=== PATIENT | female | born 2000 | race Caucasian/White ===

== ENCOUNTER 2019-05-06 23:08 | Emergency (ER) | payer SELFPAY ==
[~2019-05-06] VITALS: Ht 163 cm; Wt 70.0 kg
[2019-05-06 23:40] VITALS: BP 111/69
[2019-05-07] MEDS ORDERED: LIDOCAINE 2% VISCOUS 15 ML UDC PO ONE
--- NOTE | 2019-05-07 00:06 | ED EENT ---
History of Present Illness General Chief Complaint: Oral/Throat Problems Stated Complaint: MOUTH PAIN Source: patient Exam Limitations: no limitations History of Present Illness Date Seen by Provider: May 07, 2019 Time Seen by Provider: 00:01 Initial Comments Patient presents ER by private conveyance with chief complaint of 3 take her source one on her tongue and 2 on her lower lip. She's had these before. She's not having any fevers chills nausea vomiting headache. Allergies and Home Medications Allergies Coded Allergies: No Known Drug Allergies (Unverified , 05/06/19) Patient Home Medication List Home Medication List Reviewed: Yes Review of Systems Review of Systems Constitutional: No chills, No diaphoresis Eyes: Denies Blindness, Denies Drainage Ears: Denies Dizziness, Denies Pain Nose: denies clots, denies congestion Mouth: see HPI; denies clots, denies loose teeth Past Mipenti-Nznari-Gkltov Hx Patient Social History Alcohol Use: Denies Use Recreational Drug Use: No Smoking Status: Never a Smoker Recent Foreign Travel: No Contact w/Someone Who Travel: No Physical Exam Vital Signs Vital Signs - First Documented 05/06/19 23:40 Temp 37.0 Pulse 73 B/P (MAP) 111/69 (83) Pulse Ox 98 O2 Delivery Room Air Height, Weight, BMI Height: '" Weight: lbs. oz. kg; BMI Method: General Appearance: WD/WN, no apparent distress Eyes: bilateral eye normal inspection, bilateral eye PERRL, bilateral eye EOMI Ears: bilateral ear auricle normal, bilateral ear canal normal, bilateral ear TM normal Nose: normal inspection; No active bleeding Mouth/Throat: No dental tenderness; other (1 shallow white plaque ulcerations on the tongue and 2 on the anterior, lower lip) Neck: full range of motion, normal inspection Cardiovascular: normal peripheral pulses, regular rate, rhythm Respiratory: no respiratory distress, no accessory muscle use Progress/Results/Core Measures Results/Orders My Orders Orders - MATTHEW MEDEL Lidocaine 2% Viscous 15 Ml (Xylocaine Vi (05/07/19 00:00) Vital Signs/I&O 05/06/19 23:40 Temp 37.0 Pulse 73 B/P (MAP) 111/69 (83) Pulse Ox 98 O2 Delivery Room Air Blood Pressure Mean: 83 POS Progress Progress Note : Time: 00:03 Progress Note Viscous lidocaine and Magic mouthwash. Departure Impression Primary Impression: Oral aphthous ulcer Disposition: 01 HOME, SELF-CARE Condition: Stable Departure-Patient Inst. Decision time for Depature: 00:03 Referrals: NO,LOCAL PHYSICIAN (PCP/Family) Primary Care Physician Patient Instructions: Mouth Sores (DC) Add. Discharge Instructions: Continue good oral hygiene with mouthwash, flossing and toothbrushing. Apply a thin amount of viscous lidocaine to some gauze over the ulcers or you may just swish and spit every 4 hours as needed to numb up the site for pain. Tylenol 1000 g every 8 hours as needed for pain. Ibuprofen 800 mg every 8 hours as needed for pain. 15 mL's Magic mouthwash swish for 30 seconds and spit out. Do this twice daily for the next week. All discharge instructions reviewed with patient and/or family. Voiced understanding. Scripts [viscous lidocaine] No Conflict Check 15 ML BC Q4H PRN for PAIN-BREAKTHROUGH, #100 GM 0 Refills Prov: MATTHEW MEDEL 05/07/19 Chlorhexidine Gluconate (Peridex) 473 Ml Mouthwash 473 ML MM BID for 7 Days, #473 ML 0 Refills Prov: MATTHEW MEDLE 05/07/19 MATTHEW MEDEL May 07, 2019 00:06 POS
[2019-05-07] MEDS ORDERED: viscous lidocaine BC (00:07)
[2019-05-07] MEDS ORDERED: CHLO473M4 MM (00:07)
[2019-05-07 00:12] VITALS: BP 111/69
--- OUTSIDE RECORDS SUMMARY | 2019-06-02 07:22 | XMS REPORT | Continuity of Care Document ---
Author Organization Unknown Address Unknown Phone Unavailable Allergies Active Description Code Type Severity Reaction Onset Reported/Identified Relationship to Patient Clinical Status Yes No Known Drug Allergies [id number] Drug Allergy Unknown N/A 05/06/2019 Medications There is no data. Problems There is no data. Procedures There is no data. Results There is no data. Encounters ACCT No. Visit Date/Time Discharge Status Pt. Type Provider Facility Loc./Unit Complaint [id number] 05/06/2019 23:10:00 019 00:12:00 DIS Emergency GIANFRANCO RICAHRDSON, MATTHEW [facility] ER MOUTH PAIN
== END 2019-05-07 00:12 | disposition home or self-care (01) ==
LOC: ER 23:10
DX: K12.0 Recurrent oral aphthae (principal)
CPT/HCPCS: 99283